=== PATIENT | female | born 2000 | race African-American/Black ===

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

== ENCOUNTER 2023-02-27 08:09 | Emergency (ER) | payer OTHER, SELFPAY ==
[2023-02-27] MEDS ORDERED: Acetaminophen 500 MG TAB ONE (08:34)
[2023-02-27] MEDS ORDERED: Ondansetron ODT 4 MG TAB ONE (08:34)
[2023-02-27 08:56] LABS: Bilirubin Negative (Negative); Blood, Urine Negative (Negative); Glucose, Urine (Dipstick) Negative (Negative); Ketone, Urine Negative (Negative); Leukocyte Small (Negative); Nitrite Negative (Negative); Protein, Urine (Dipstick) Negative (Neg-Trace); Specific Gravity, Urine 1.015 (1.005-1.030)
[2023-02-27 09:03] LABS: Clarity Hazy (Clear); Pregnancy Test - Urine (BHCG) POSITIVE (Negative); Pregu Control Background? CLEAR/WHITE (CLR/WHITE); Pregu Control Bar Appear? YES (CONTROL BAR); Specific Gravity 1.015 (1.002-1.036)
[2023-02-27 09:05] LABS: Bacteria/HPF 1+ HPF (None Seen); CAUTI Indications for Culture Dysuria,urgency,freq; RBC/HPF 0-3 HPF (0-3); Urine Culture Reflex No No
[2023-02-27] MEDS ORDERED: Morphine 2 MG/ML VIAL ONE (10:23)
[2023-02-27] MEDS ORDERED: Metoclopramide HCl 10 MG TAB ONE (10:23)
[2023-02-27] MEDS ORDERED: Ketorolac Tromethamine 30 MG (1 mL) VIAL ONE (12:27)
[2023-02-27 15:07] LABS: Chlamydia by PCR, Vaginal Swab DETECTED (NotDetected); GC by PCR, Vaginal Swab DETECTED (NotDetected)
== END 2023-02-27 12:34 | disposition home or self-care (01) ==
LOC: ERS 08:09
DX: O99.891 Other specified diseases and conditions complicating pregnancy (principal); R10.84 Generalized abdominal pain; O21.9 Vomiting of pregnancy, unspecified; Z3A.01 Less than 8 weeks gestation of pregnancy
CPT/HCPCS: 36415; 76856; 81001; 81025; 84702; 86900; 86901; 87480; 87491; 87510; 87591; 87660; 96361; 96372; 96374; J1885; J2272; Q0162